=== PATIENT | male | born 1955 ===

== ENCOUNTER 2016-11-25 06:53 | Inpatient (IN) | payer OTHER ==
[2016-11-25 07:06] VITALS: BMI 29.0
[2016-11-25] MEDS ORDERED: Propofol 10 mg/ml Inj (20 ML) ONE (07:09)
[2016-11-25] MEDS ORDERED: Midazolam 2 MG/2 ML VIAL ONE (07:10)
[2016-11-25] MEDS ORDERED: Lidocaine Hydrochloride 5 ML INJ ONE (07:10)
[2016-11-25] MEDS ORDERED: Neostigmine Methylsulfate 2 MG/2 ML ML IV ONE ×2 (07:10→12:41)
[2016-11-25] MEDS ORDERED: Lidocaine 4% (Laryng-O-Jet) Kit MM ONE (07:10)
[2016-11-25] MEDS ORDERED: Succinylcholine 200 mg/10 ml Inj IV ONE (07:10)
[2016-11-25] MEDS ORDERED: Rocuronium 10 mg/ml (5 ml) ONE (07:10)
[2016-11-25 07:51] LABS: HEMOGLOBIN 14.5 g/dL (12.0-18.0); MEAN CELL VOLUME 89.4 fl (80.0-94.0); MEAN CORPUSCULAR HEMOGLOBIN 29.8 pg (27.0-31.0); MEAN CORPUSCULAR HGB CONC 33.4 g/dL (33.0-37.0); RBC 4.86 Mil/uL (4.40-5.90); WHITE BLOOD COUNT 5.9 K/uL (4.8-10.8)
[2016-11-25 07:54] LABS: BLOOD UREA NITROGEN 20 mg/dl (9-20); CALCIUM 9.4 mg/dL (8.4-10.2); GFR AFRICAN-AMERICAN > 60; GFR NON-AFRICAN AMERICAN > 60
[2016-11-25 08:06] LABS: INR 1.1 (0.9-1.2); PROTHROMBIN TIME 11.9 Seconds (9.8-13.1)
[2016-11-25] MEDS ORDERED: Lactated Ringer's 1,000 ML IV ONE ×3 (08:07→11:52)
[2016-11-25] MEDS ORDERED: Bupivacaine 0.5% Inj(30mL) ONE (09:31)
[2016-11-25] MEDS ORDERED: Lidocaine 1% Inj (20ml) ONE (09:31)
[2016-11-25] MEDS ORDERED: EPINEPHrine 1 mg/ml (1:1000) Inj ONE (09:32)
[2016-11-25] MEDS ORDERED: Lidocaine 2% w Epi 1:100,000 Inj IJ ONE (09:32)
[2016-11-25] MEDS ORDERED: EPINEPHrine 1 mg/ml (1:1000) Inj IV ONE (10:50)
[2016-11-25] MEDS ORDERED: Lidocaine 2% MPF (5 ml) Inj ONE (13:02)
--- NOTE | 2016-11-25 13:09 | PCM.SURG1 ---
Surgeon's Initial Post Op Note - Surgeon's Notes Surgeon: Umm Werner MD [employer]illing Plan[employer] Operator: MACI Long Type of Anesthesia: General Endo Pre-Operative Diagnosis: Right shoulder osteoarthritis Operative Findings: See op report Post-Operative Diagnosis: Same as pre-op dx Operation Performed: R TSR Specimen/Specimens Removed: Right shoulder humeral head and soft tissue Estimated Blood Loss: EBL {In ML}: 150 Date of Surgery/Procedure: 11/25/16 Time of Surgery/Procedure: 10:30
[2016-11-25] MEDS ORDERED: HYDROmorphone 0.5 mg/0.5 ml ISec IVP PRN (13:47)
[2016-11-25] MEDS ORDERED: HYDROmorphone 0.5 mg/0.5 ml ISec ONE ×2 (13:55→14:06)
[2016-11-25] MEDS: HYDROmorphone 0.5 mg/0.5 ml ISec ONE ×2 (14:00→14:10)
--- NOTE | 2016-11-25 14:17 | RAD ---
PROCEDURE: CHEST RADIOGRAPH, 1 VIEW HISTORY: pre-op COMPARISON: None available. FINDINGS: LUNGS: Clear. PLEURA: No pneumothorax or pleural fluid seen. CARDIOVASCULAR: No radiographic findings to suggest acute or significant cardiovascular disease. OSSEOUS STRUCTURES: No significant abnormalities. VISUALIZED UPPER ABDOMEN: Normal. OTHER FINDINGS: None. IMPRESSION: No active disease.
--- NOTE | 2016-11-25 15:03 | PCM.ANESB1 ---
Interscalene Block - Brachial Plexus Date of Procedure: 11/25/16 Procedure Performed: Interscalene Block of Brachial Plexus Right - Procedure Interscalene Block of Brachial Plexus: This procedure was explained to the patient that it is for post-operative pain management. Consent was obtained after a thorough discussion with the patient regarding the benefits and possible complications of local anesthetic block of the Brachial Plexus at the Interscalene area. The patient was brought to the Recovery Room and standard monitors were applied. Time out was held with the PACU nurse to confirm the correct surgery and appropriate block. After applying Oxygen by nasal cannula and administering IV Sedation, the patient's head was gently rotated away from the ___right___operative shoulder and the anterior scalene groove was carefully palpated. The ultrasound transducer was then applied to the skin in the transverse plane and the brachial plexus was visualized lateral to the carotid artery and in between the anterior and middle scalene muscles. After identification,the anterior lateral portion of the neck was prepped with chloroprep solution three times and Lidocaine 2% was injected subcutaneously for topical analgesia. At this point, a # 22 gauge Stimuplex 2 inches insulated needle was inserted into the interscalene groove and directed in a caudal and midline direction. The needle was inserted lateral to the ultrasound transducer in-plane towards the brachial plexus in a [id number] direction. Needle advancement was performed carefully under direct ultrasound visualization. After repeated negative aspiration,___5__cc of___0.5% Ropivacaine__, were injected and this was followed with ___25__cc of ___0.5%__% Ropivacaine . Under ultrasound guidance the local anesthetics were observed surrounding the roots of the brachial plexus. The needle was removed intact and sterile dressing was applied. The patient had stable vital signs, was conscious and in no apparent distress. The patient tolerated the interscalene block of the bracheal plexus well with stable vital signs.
--- NOTE | 2016-11-25 16:21 | RAD ---
PROCEDURE: Radiographs of the Right Shoulder HISTORY: s/p RTSR COMPARISON: No prior. FINDINGS: BONES: Status post right total shoulder replacement. No acute fracture. Prosthesis appears grossly intact. Acromioclavicular joint is unremarkable. JOINTS: As above SOFT TISSUES: Normal. OTHER FINDINGS: None. IMPRESSION: Right total shoulder replacement.
[2016-11-25] MEDS ORDERED: ceFAZolin 1 GM in Sodium Chloride 0.9% 100 ML IVPB ONE (18:30)
[2016-11-25] MEDS ORDERED: Clindamycin 600 MG in Sodium Chloride 0.9% 100 ML IVPB ONE (18:30)
[2016-11-25] MEDS: oxyCODONE 10 mg ER Tab (oxyCONTIN) PO SCH (21:39)
[2016-11-26 00:15] VITALS: RESP 18
[2016-11-26] MEDS ORDERED: ceFAZolin 1 GM in Sodium Chloride 0.9% 100 ML IVPB ONE (02:30)
[2016-11-26] MEDS ORDERED: Clindamycin 600 MG in Sodium Chloride 0.9% 100 ML IVPB ONE (02:30)
[2016-11-26] MEDS: Oxycodone/Acetaminophen 5/325 mg Tab PO PRN ×2 (04:39→11:35)
[2016-11-26 07:27] LABS: BASO % 0.3 % (0.0-2.0); EOS # 0.3 K/uL (0.0-0.7); EOS % 3.9 % (0.0-4.0); HEMOGLOBIN 12.9 g/dL (12.0-18.0); LYMPH # 2.2 K/uL (1.0-4.3); LYMPH % 25.9 % (20.0-40.0); MEAN CORPUSCULAR HGB CONC 33.3 g/dL (33.0-37.0); MEAN PLATELET VOLUME 10.5 fl (7.2-11.7); MONO # 0.8 K/uL (0.0-0.8); MONO % 9.2 % (0.0-10.0); NEUT # 5.2 K/uL (1.8-7.0); NEUT % 60.7 % (50.0-75.0); NRBC % 0.1 % (0.0-0.0); RBC 4.32 Mil/uL (4.40-5.90); WHITE BLOOD COUNT 8.6 K/uL (4.8-10.8)
[2016-11-26 07:42] LABS: BLOOD UREA NITROGEN 19 mg/dl (9-20); CALCIUM 8.1 mg/dL (8.4-10.2); GFR AFRICAN-AMERICAN > 60; GFR NON-AFRICAN AMERICAN > 60
[2016-11-26] MEDS: oxyCODONE 10 mg ER Tab (oxyCONTIN) PO SCH (08:40)
[2016-11-26 08:46] VITALS: PULSE 67
--- NOTE | 2016-11-26 10:29 | CP.PCM.HP ---
History of Present Illness - History of Present Illness History of Present Illness: This is a 61 y/o male admitted for right shoulder surgery. Evaluation is done post op. Patient has been suffering from chronic right shoulder pain from a work related injury and conservative measured failed hence advised surgery. No significant medical history. Present on Admission - Present on Admission Any Indicators Present on Admission: No History of DVT/PE: No History of Uncontrolled Diabetes: No Urinary Catheter: No Decubitus Ulcer Present: No Review of Systems - Musculoskeletal Musculoskeletal: Arthralgias Past Patient History - Past Medical History & Family History Past Medical History?: Yes - Past Social History Smoking Status: Never Smoked - CARDIAC Hx Cardiac Disorders: Yes Hx Hypertension: Yes - PULMONARY Hx Respiratory Disorders: Yes Hx Asthma: Yes - NEUROLOGICAL Hx Neurological Disorder: No - HEENT Hx HEENT Problems: No - RENAL Hx Chronic Kidney Disease: No - ENDOCRINE/METABOLIC Hx Endocrine Disorders: No - HEMATOLOGICAL/ONCOLOGICAL Hx Blood Disorders: No - INTEGUMENTARY Hx Dermatological Problems: No - MUSCULOSKELETAL/RHEUMATOLOGICAL Hx Musculoskeletal Disorders: Yes Hx Arthritis: Yes - GASTROINTESTINAL Hx Gastrointestinal Disorders: No - GENITOURINARY/GYNECOLOGICAL Hx Genitourinary Disorders: No - PSYCHIATRIC Hx Psychophysiologic Disorder: No - SURGICAL HISTORY Hx Surgeries: Yes Hx Orthopedic Surgery: Yes (right shoulder) - ANESTHESIA Hx Anesthesia: Yes Hx Anesthesia Reactions: No Hx Malignant Hyperthermia: No Has any member of the family had a problem w/ anesthesia?: No Meds Allergies/Adverse Reactions: Allergies Allergy/AdvReac Type Severity Reaction Status Date / Time No Known Allergies Allergy Verified 11/25/16 07:06 Physical Exam - Head Exam Head Exam: NORMAL INSPECTION - Eye Exam Eye Exam: Normal appearance - ENT Exam ENT Exam: Mucous Membranes Moist - Respiratory Exam Respiratory Exam: Clear to Auscultation Bilateral - Cardiovascular Exam Cardiovascular Exam: REGULAR RHYTHM - GI/Abdominal Exam GI & Abdominal Exam: Normal Bowel Sounds - Neurological Exam Neurological exam: CN II-XII Intact, Oriented x3 - Psychiatric Exam Psychiatric exam: Normal Mood Results - Vital Signs Recent Vital Signs: Last Vital Signs Temp 98.5 F 11/26/16 08:00 Pulse 67 11/26/16 08:00 Resp 18 11/26/16 08:00 BP 131/83 11/26/16 08:00 Pulse Ox 97 11/26/16 08:00 - Labs Result Diagrams: 11/26/16 06:20 11/26/16 06:20 Labs: Laboratory Results - last 24 hr 11/26/16 11/26/16 06:20 06:20 WBC 8.6 RBC 4.32 L Hgb 12.9 Hct 38.9 MCV 90.0 MCH 30.0 MCHC 33.3 RDW 13.0 Plt Count 136 MPV 10.5 Neut % (Auto) 60.7 Lymph % (Auto) 25.9 [place] % (Auto) 9.2 Eos % (Auto) 3.9 Baso % (Auto) 0.3 Neut # 5.2 Lymph # 2.2 [place] # 0.8 Eos # 0.3 Baso # 0.0 Sodium 138 Potassium 3.7 Chloride 102 Carbon Dioxide 28 Anion Gap 12 BUN 19 Creatinine 1.2 Est GFR ( Amer) > 60 Est GFR (Non-Af Amer) > 60 Random Glucose 92 Calcium 8.1 L Assessment & Plan (1) Post-traumatic osteoarthritis of right shoulder Status: Acute - Assessment and Plan (Free Text) Plan: pain meds Phys therapy checklabs
--- NOTE | 2016-11-26 10:32 | CP.PCM.PN ---
Subjective - Date & Time of Evaluation Date of Evaluation: 11/26/16 Time of Evaluation: 10:30 - Subjective Subjective: patient is dong well Has no constipation No fever. Objective - Vital Signs/Intake and Output Vital Signs (last 24 hours): Temp Pulse Resp BP Pulse Ox 98.5 F 67 18 131/83 97 11/26/16 08:00 11/26/16 08:00 11/26/16 08:00 11/26/16 08:00 11/26/16 08:00 - Medications Medications: Current Medications Acetaminophen (Tylenol 325mg Tab) 325 mg PO Q4 PRN PRN Reason: pain1-3 Aspirin (Aspirin) 325 mg PO DAILY [facility] Last Admin: 11/26/16 08:44 Dose: 325 mg Celecoxib (Celebrex) 200 mg PO Q12 [facility] Last Admin: 11/26/16 08:43 Dose: 200 mg Famotidine (Pepcid) 20 mg PO BID [facility] Last Admin: 11/26/16 08:44 Dose: 20 mg Ketorolac Tromethamine (Toradol) 15 mg IM Q8 [facility] Stop: 11/27/16 09:01 Last Admin: 11/26/16 08:42 Dose: 15 mg Ondansetron HCl (Zofran Odt) 4 mg PO Q8H PRN PRN Reason: Nausea/Vomiting Oxycodone HCl (Oxycontin Extended Release Tab) 10 mg PO Q12 [facility] Stop: 12/09/16 09:01 Last Admin: 11/26/16 08:40 Dose: 10 mg Oxycodone/Acetaminophen (Percocet 5/325 Mg Tab) 1 tab PO Q4 PRN PRN Reason: pain4-6 Stop: 11/28/16 13:18 Last Admin: 11/26/16 04:39 Dose: 1 tab - Labs Labs: 11/26/16 06:20 11/26/16 06:20 PT 11.9 Seconds (9.8-13.1) 11/25/16 07:30 INR 1.1 (0.9-1.2) 11/25/16 07:30 - Head Exam Head Exam: NORMAL INSPECTION - Eye Exam Eye Exam: Normal appearance - ENT Exam ENT Exam: Mucous Membranes Moist - Respiratory Exam Respiratory Exam: Clear to Ausculation Bilateral - Cardiovascular Exam Cardiovascular Exam: REGULAR RHYTHM - GI/Abdominal Exam GI & Abdominal Exam: Normal Bowel Sounds - Neurological Exam Neurological Exam: Awake, Oriented x3 - Psychiatric Exam Psychiatric exam: Normal Mood Assessment and Plan (1) Post-traumatic osteoarthritis of right shoulder Status: Acute (2) Status post total replacement of right shoulder Status: Acute
--- NOTE | 2016-11-26 12:24 | CP.PCM.PN ---
Subjective - Date & Time of Evaluation Date of Evaluation: 11/26/16 Time of Evaluation: 08:30 - Subjective Subjective: S/P RTSR POD#1 Pt seen and examined at bedside, comfortable in bed Pt c/o mod right shoulder pain Pt denies any SOB, chest pain, numbness/tingling to RUE Objective - Vital Signs/Intake and Output Vital Signs (last 24 hours): Temp Pulse Resp BP Pulse Ox 98.5 F 67 18 131/83 97 11/26/16 08:00 11/26/16 08:00 11/26/16 08:00 11/26/16 08:00 11/26/16 08:00 - Medications Medications: Current Medications Acetaminophen (Tylenol 325mg Tab) 325 mg PO Q4 PRN PRN Reason: pain1-3 Aspirin (Aspirin) 325 mg PO DAILY [facility] Last Admin: 11/26/16 08:44 Dose: 325 mg Celecoxib (Celebrex) 200 mg PO Q12 [facility] Last Admin: 11/26/16 08:43 Dose: 200 mg Famotidine (Pepcid) 20 mg PO BID [facility] Last Admin: 11/26/16 08:44 Dose: 20 mg Ketorolac Tromethamine (Toradol) 15 mg IM Q8 [facility] Stop: 11/27/16 09:01 Last Admin: 11/26/16 08:42 Dose: 15 mg Ondansetron HCl (Zofran Odt) 4 mg PO Q8H PRN PRN Reason: Nausea/Vomiting Oxycodone HCl (Oxycontin Extended Release Tab) 10 mg PO Q12 [facility] Stop: 12/09/16 09:01 Last Admin: 11/26/16 08:40 Dose: 10 mg Oxycodone/Acetaminophen (Percocet 5/325 Mg Tab) 1 tab PO Q4 PRN PRN Reason: pain4-6 Stop: 11/28/16 13:18 Last Admin: 11/26/16 11:35 Dose: 1 tab - Labs Labs: 11/26/16 06:20 11/26/16 06:20 PT 11.9 Seconds (9.8-13.1) 11/25/16 07:30 INR 1.1 (0.9-1.2) 11/25/16 07:30 - Constitutional Appears: Well, No Acute Distress - Respiratory Exam Respiratory Exam: Clear to Ausculation Bilateral, NORMAL BREATHING PATTERN - Cardiovascular Exam Cardiovascular Exam: REGULAR RHYTHM, RRR - Extremities Exam Additional comments: RUE: shoulder dressing C/D/I +swelling Shoulder immobilizer in place Limited ROM secondary to pain N/V intact distally Radial and ulna pulses wnl Assessment and Plan - Assessment and Plan (Free Text) Assessment: 61 yo M s/p RTSR POD#1 Plan: S/P RTSR POD#1 Pain Control PT/OT DVT ppx Incentive Spirometer D/C planning pending PT clearance Discussed with Dr. Werner
[2016-11-26 13:28] VITALS: BP 130/84; TEMP 98.1; O2SAT 96
[2016-11-26] MEDS ORDERED: Metoprolol Succinate 50 mg XL Tab PO SCH (14:15)
--- NOTE | 2016-11-27 08:31 | OP ---
PROCEDURE DATE: 11/25/2016 PREOPERATIVE DIAGNOSIS: Right shoulder occupational arthritis. POSTOPERATIVE DIAGNOSIS: Right shoulder occupational arthritis. PROCEDURE: Right total shoulder replacement. IMPLANTS: [place] total shoulder replacement, size 17 humeral stem, 50 mm humeral head, large glenoid base platewith polyethylene and poly. ESTIMATED BLOOD LOSS: 200 mL. SURGEON: Umm Werner MD LEGAL ADMINISTRATIVE SECRETARY: Tyrone العراقي PA-C TYPE OF ANESTHESIA: General anesthesia and postoperative block. CURRENT MEDICATIONS: None. COMPLICATIONS: None. HISTORY: The patient had a work realed injury advanced oarthritis, initially managed with extensive conservative management that have included physical therapy, anti-inflammatory medications without any symptomatic relief. X-rays have shown advanced arthritis of the glenohumeral joint. At that point, I had offered the patient a total shoulder replacement. I reviewed the risks and benefits of the surgery to the patient in detail. The risks included but are not limited to bleeding, infection, nerve vessel damage, recurrent pain, stiffness. The patient fully understood the risks and benefits and opted to proceed with surgery. DESCRIPTION OF PROCEDURE: On date of surgery, the patient was admitted to the preoperative holding area. A laterality sheet was completed confirming the patient's right shoulder as the correct operative site. An informed consent was signed with patient and right extremity was marked. The patient was brought into operating room table and underwent general anesthesia with postoperative nerve block. Right shoulder was prepped in standard sterile manner and head of bed was secured to to 60 degrees. We utilized standard deltopectoral approach. Dissection was taken down until the joint was identified. Care was taken to protect the axillary and musculocutaneous nerve. The subscapularis was identified and sharply dissected for later repair. The joint was exposed. There was osteophyte and evidence of arthritic changes on both glenoid and humeral site. Using the intramedullary guide, the standard anatomic neck cut was made, then attention was given to the glenoid. The glenoid was exposed. After 360 capsule was released. A central pin hole was drilled and the glenoid was reamed with a large reamer. Afterwards, appropriate drill hole was made and a large metal-backed glenoid baseplate was impacted and secured with 2 large screws. Afterwards, the polyethylene insert was secured into the baseplate. Next, attention was given to the humeral shaft. It was noted that size 17 would be appropriate for this patient. A trial neck and a 50 mm head was assembled and the joint was taken through the range of motion and the patient had full forward flexion, external rotation, internal rotation, and stability. Once again, the shoulder was dislocated and thus trial implants were removed and actual implant with 17 mm stem and 50 mm head with 0 offset was secured. Final range of motion was found to be equivalent to the actual implants. Finally, the wound was copiously irrigated. The subscapularis was repaired using 3 drill holes in the bicipital groove and the wound was copiously irrigated. The subscapularis was repaired and rotator interval was also closed using 5-0 FiberWire sutures. Skin was closed in a standard manner and sterile dressing was applied. The patient's arm was placed in an abduction sling and was extubated. She was transferred to the stretcher and taken to recovery. There were no complications of surgery. Tyrone العراقي PA-C is a certified physician assistant branch operations manager who was present for the entirety of the case as her participation was crucial in patient's positioning, retraction of critical neurovascular structure, exposure and proper placement of the implants and successful completion of the surgery. Umm Werner MD LLUVIA
== END 2016-11-26 15:45 | disposition home or self-care (01) | DRG 483 ==
LOC: H.OPSURG 06:53 → H.TEL 13:13
PROVIDERS: ADMIT Family Medicine; ATTEND Family Medicine
PROC: 3E0T3CZ (ICD-10-PCS; 2016-11-25)
PROC: 0RRJ0JZ Replacement of Right Shoulder Joint with Synthetic Substitute, Open Approach (ICD-10-PCS; principal; 2016-11-25 11:15)
DX: M19.111 Post-traumatic osteoarthritis, right shoulder (principal)